=== PATIENT | male | born 1985 | race Two or more races ===

== ENCOUNTER 2023-12-25 21:08 | Emergency (ER) | payer MEDICAID, OTHER ==
[~2023-12-25] VITALS: Ht 182.9 cm; Wt 86.3 kg
[2023-12-26 00:40] VITALS: BP 122/70; PULSE 93; RESP 16; TEMP 98.6; O2SAT 97
[2023-12-26] MEDS: KETOROLAC TROMETH 60MG/2ML VIAL IM ONE (00:51)
== END 2023-12-26 02:43 | disposition home or self-care (01) ==
LOC: ER 21:08
DX: S83.92XA Sprain of unspecified site of left knee, initial encounter (principal); X50.1XXA Overexertion from prolonged static or awkward postures, initial encounter; Y93.67 Activity, basketball; Y92.89 Other specified places as the place of occurrence of the external cause; Y99.8 Other external cause status
CPT/HCPCS: 29505; 29530; 73562; 96372; 99283; J1885